=== PATIENT | male | born 1935 | race Caucasian/White ===

== ENCOUNTER → 2016-05-08 | Outpatient (CLI) | payer BC, MEDICARE | LOC: RAD 11:04 | DX: J20.9 Acute bronchitis, unspecified (principal) | CPT/HCPCS: 71020 ==

== ENCOUNTER → 2020-04-20 | Outpatient (CLI) | payer MEDICARE, BC ==
[~2020-04-20] MED LIST: ANTIVERT 25MG T25 MG PO; ZOFRAN4 MG PO
== END ==
LOC: ECHO 11:00
DX: R94.31 Abnormal electrocardiogram [ECG] [EKG] (principal); I10 Essential (primary) hypertension; I44.7 Left bundle-branch block, unspecified; I08.3 Combined rheumatic disorders of mitral, aortic and tricuspid valves; I27.20 Pulmonary hypertension, unspecified
CPT/HCPCS: ECHO; 93306

== ENCOUNTER → 2021-01-22 | Outpatient (CLI) | payer MEDICARE, BC | LOC: KOH-I 12:07 | DX: J20.9 Acute bronchitis, unspecified (principal) | CPT/HCPCS: 71046 ==